=== PATIENT | male | born 1970 | race Caucasian/White ===

== ENCOUNTER 2017-06-02 21:53 | Emergency (ER) | payer SELFPAY ==
[2017-06-02 21:58] VITALS: BP 121/77; PULSE 62; TEMP 97.6; BMI 28.0
--- NOTE | 2017-06-02 22:57 | PDOC ---
History of Present Illness - General Chief Complaint: Pain Stated Complaint: ABD PAIN Time Seen by Provider: 06/02/17 22:56 - History of Present Illness Initial Comments: 06/02/17 22:56 Mr. Hans Ramsey is a 47 yo male with no significant past medical history who presents to the emergency department with a one month history of pain to his right lower abdomen. He says that it has been about a 3/10 following meals but that today it was suddenly much worse. He denies any other symptoms or associated problems. The patient denies chest pain, shortness of breath, headache and dizziness. Denies fever, chills, nausea, vomit, diarrhea and constipation. Denies dysuria, frequency, urgency and hematuria. Allergies: NKDA Past surgical history: Denies Social history: Denies Past History - Past Medical History Allergies/Adverse Reactions: Allergies Allergy/AdvReac Type Severity Reaction Status Date / Time No Known Allergies Allergy Verified 06/02/17 21:58 Other medical history: denies - Psycho/Social/Smoking Cessation Hx Anxiety: No Suicidal Ideation: No Smoking History: Never smoked Have you smoked in the past 12 months: No Hx Alcohol Use: No Drug/Substance Use Hx: No Substance Use Type: None Review of Systems - Review of Systems Comments:: 06/02/17 22:57 GENERAL/CONSTITUTIONAL: No fever or chills. No weakness. HEAD, EYES, EARS, NOSE AND THROAT: No change in vision. No ear pain or discharge. No sore throat. CARDIOVASCULAR: No chest pain or shortness of breath RESPIRATORY: No cough, wheezing, or hemoptysis. GASTROINTESTINAL: +Pain to his RLQ noted. No nausea, vomiting, diarrhea or constipation. GENITOURINARY: No dysuria, frequency, or change in urination. MUSCULOSKELETAL: No joint or muscle swelling or pain. No neck or back pain. SKIN: No rash NEUROLOGIC: No headache, vertigo, loss of consciousness, or change in strength/ sensation. ENDOCRINE: No increased thirst. No abnormal weight change HEMATOLOGIC/LYMPHATIC: No anemia, easy bleeding, or history of blood clots. ALLERGIC/IMMUNOLOGIC: No hives or skin allergy. *Physical Exam - Vital Signs Last Vital Signs Temp Pulse Resp BP Pulse Ox 97.6 F 62 18 121/77 99 06/02/17 21:56 06/02/17 21:56 06/02/17 21:56 06/02/17 21:56 06/02/17 21:56 - Physical Exam Comments: 06/02/17 22:57 GENERAL: Awake, alert, and fully oriented, in no acute distress HEAD: No signs of trauma, normocephalic, atraumatic EYES: PERRLA, EOMI, sclera anicteric, conjunctiva clear ENT: Auricles normal inspection, hearing grossly normal, nares patent, oropharynx clear without exudates. Moist mucosa NECK: Normal ROM, supple, no lymphadenopathy, JVD, or masses LUNGS: No distress, speaks full sentences, clear to auscultation bilaterally HEART: Regular rate and rhythm, normal S1 and S2, no murmurs, rubs or gallops, peripheral pulses normal and equal bilaterally. ABDOMEN: +Some pain with deep palpation of RLQ. Soft, normoactive bowel sounds. No guarding, no rebound. No masses EXTREMITIES: Normal inspection, Normal range of motion, no edema. No clubbing or cyanosis. NEUROLOGICAL: Cranial nerves II through XII grossly intact. Normal speech, normal gait, no focal sensorimotor deficits SKIN: Warm, Dry, normal turgor, no rashes or lesions noted. 06/03/17 04:21 ED Treatment Course - LABORATORY CBC & Chemistry Diagram: 06/02/17 23:05 06/02/17 23:05 Medical Decision Making - Medical Decision Making 06/03/17 03:58 Patient presented with RLQ pain. Pain only with deep palpation and reportedly related to meals. Abdominal CT ordered and read as negative for acute pathology. D/Cing to home with instructions to f/u if any change in pain or other symptoms. *DC/Admit/Observation/Transfer Diagnosis at time of Disposition: Abdominal pain Qualifiers: Abdominal location: right lower quadrant Qualified Code(s): R10.31 - Right lower quadrant pain - Discharge Dispostion Disposition: HOME - Referrals Referrals: Marlene Francisco MD [Primary Care Provider] - - Patient Instructions Printed Discharge Instructions: DI for Abdominal Pain-Adult Print Language: KHMER
[2017-06-02 23:24] LABS: BASOPHIL 0.8 % (0-2.0); EOSINOPHIL 1.5 % (0-4.5); MCH 29.8 pg (25.7-33.7); MEAN PLT VOLUME 9.3 fl (7.5-11.1); NEUTROPHILS 44.9 % (42.8-82.8); PLATELET COUNT 197 K/MM3 (134-434); RDW 12.9 % (11.9-15.9)
--- NOTE | 2017-06-02 23:26 | PDOC ---
Attending Attestation - Resident Resident Name: Zack Godinez - ED Attending Attestation I have performed the following: I have examined & evaluated the patient, The case was reviewed & discussed with the resident, I agree w/resident's findings & plan, Exceptions are as noted - HPI HPI: 06/03/17 00:21 47yo M with no significant PMH p/w 1 month of 3/10 RLQ pain, mostly after eating. Reports pain became a lot worse yesterday. Denies N/V/D, fevers, constipation. Last BM today that was wnl. Denies any chest pain, shortness of breath, lower extremity edema, rashes, weakness, dizziness. Has a PMD but does not remember his name. - Physicial Exam PE: 06/03/17 00:27 GENERAL: Awake, alert, and fully oriented, in no acute distress HEAD: No signs of trauma EYES: PERRLA, EOMI, sclera anicteric, conjunctiva clear ENT: Auricles normal inspection, hearing grossly normal, nares patent, oropharynx clear without exudates. Moist mucosa NECK: Normal ROM, supple, no lymphadenopathy, JVD, or masses LUNGS: Breath sounds equal, clear to auscultation bilaterally. No wheezes, and no crackles HEART: Regular rate and rhythm, normal S1 and S2, no murmurs, rubs or gallops ABDOMEN: Soft, +RLQ ttp, normoactive bowel sounds. No guarding, no rebound. No masses EXTREMITIES: Normal range of motion, no edema. No clubbing or cyanosis. No cords, erythema, or tenderness NEUROLOGICAL: Normal speech, cranial nerves intact, negative pronator drift, 5/ 5 strength in all 4 extremities, normal sensation to light touch in all 4 extremities, normal cerebellar exam, normal gait, normal reflexes and tone SKIN: Warm, Dry, normal turgor, no rashes or lesions noted. - Medical Decision Making 06/03/17 00:27 47-year-old male with no significant past medical history presents with right lower quadrant pain for one month that became worse yesterday. Vitals are unremarkable. Exam is remarkable for right lower quadrant tenderness to palpation with no rebound or guarding. Differential includes appendicitis versus colitis versus diverticulitis versus hernia. -labs -CTAP -pain control -reassess
[2017-06-02 23:29] LABS: URINE APPEARANCE CLEAR; URINE BILIRUBIN NEGATIVE (NEGATIVE); URINE BLOOD NEGATIVE (NEGATIVE); URINE COLOR LTYELLOW; URINE GLUCOSE (UA) NEGATIVE (NEGATIVE); URINE KETONE NEGATIVE (NEGATIVE); URINE LEUK ESTERASE NEGATIVE (NEGATIVE); URINE NITRITE NEGATIVE (NEGATIVE); URINE PROTEIN NEGATIVE (NEGATIVE); URINE UROBILINOGEN NEGATIVE mg/dL (0.2-1.0)
[2017-06-02 23:42] LABS: ANION GAP 5 (8-16); BILIRUBIN,TOTAL 0.4 mg/dL (0.2-1.0); CO2 31 mmol/L (21-32); CREATININE 0.8 mg/dL (0.7-1.3); GLUCOSE,RANDOM 114 mg/dL (74-106); SGOT/AST 26 U/L (15-37); SGPT/ALT 55 U/L (12-78); TOT PROT 7.4 g/dl (6.4-8.2)
[2017-06-02 23:43] LABS: ALK PHOS 75 U/L (45-117)
--- NOTE | 2017-06-03 04:20 | PDOC ---
*Physical Exam - Vital Signs Last Vital Signs Temp Pulse Resp BP Pulse Ox 97.6 F 62 18 121/77 99 06/02/17 21:56 06/02/17 21:56 06/02/17 21:56 06/02/17 21:56 06/02/17 21:56 ED Treatment Course - LABORATORY CBC & Chemistry Diagram: 06/02/17 23:05 06/02/17 23:05 - ADDITIONAL ORDERS Additional order review: Laboratory Results 06/02/17 06/02/17 23:15 23:05 Sodium 138 Potassium 4.2 Chloride 102 Carbon Dioxide 31 Anion Gap 5 L BUN 16 D Creatinine 0.8 Creat Clearance w eGFR > 60 Random Glucose 114 H Calcium 9.0 Total Bilirubin 0.4 D AST 26 ALT 55 D Alkaline Phosphatase 75 Total Protein 7.4 Albumin 4.0 Urine Color Ltyellow Urine Appearance Clear Urine pH 6.0 Urine Protein Negative Urine Glucose (UA) Negative Urine Ketones Negative Urine Blood Negative Urine Nitrite Negative Urine Bilirubin Negative Urine Urobilinogen Negative Ur Leukocyte Esterase Negative 06/02/17 23:05 RBC 5.12 MCV 85.0 MCHC 35.0 RDW 12.9 MPV 9.3 Neutrophils % 44.9 Lymphocytes % 46.3 H Monocytes % 6.5 Eosinophils % 1.5 Basophils % 0.8 Medical Decision Making - Medical Decision Making 06/03/17 04:19 CTAP with no acute pathology. Small bilateral kidney stones noted but unlikely to be cause of pt's pain. Pt reassessed, appears very well. Has minimal abdominal tenderness. Has tolerated PO with no N/V. Clinically stable for DC at this time. *DC/Admit/Observation/Transfer Diagnosis at time of Disposition: Abdominal pain - Referrals Referrals: Marlene Francisco MD [Primary Care Provider] - - Patient Instructions - Post Discharge Activity
== END 2017-06-03 04:41 | disposition home or self-care (01) ==
LOC: JER 21:53
DX: R10.31 Right lower quadrant pain (principal)
CPT/HCPCS: 36415; 74177-TC; 80053; 81003; 85025; 99282-25

== ENCOUNTER 2024-09-18 14:29 | Emergency (ER) | payer SELFPAY ==
[2024-09-18] MEDS ORDERED: ACETAMINOPHEN 325 MG TABLET (FP) ONE (16:01)
[2024-09-18] MEDS: ACETAMINOPHEN 500 MG TABLET (FP) PO ONE (16:02)
[2024-09-18 16:14] VITALS: BP 156/83; PULSE 87; TEMP 98.3; BMI 29.0
[2024-09-18] MEDS ORDERED: KETOROLAC TROMETHAMINE 30 MG/1 ML VIAL ONE (17:10)
[2024-09-18] MEDS: KETOROLAC TROMETHAMINE 30 MG/1 ML VIAL IM ONE (17:18)
== END 2024-09-18 17:19 | disposition home or self-care (01) ==
LOC: JER 14:29
PROC: 3E0133Z Introduction of Anti-inflammatory into Subcutaneous Tissue, Percutaneous Approach (ICD-10-PCS; principal; 2024-09-18)
DX: M25.512 Pain in left shoulder (principal); R29.898 Other symptoms and signs involving the musculoskeletal system
CPT/HCPCS: 73030-TC-LT-FY; 73060-TC-LT-FY; 73070-TC-LT-FY; 99284-25